=== PATIENT | female | born 2000 | race Caucasian/White ===

== ENCOUNTER 2020-02-26 11:58 | Emergency (ER) | payer OTHER, SELFPAY ==
[2020-02-26 12:10] VITALS: BP 127/72; PULSE 96; RESP 18; TEMP 37; O2SAT 100
--- NOTE | 2020-02-26 12:42 | ED.GENADULT ---
HPI - General Adult General Chief complaint: Ear Stated complaint: ear pain History of Present Illness HPI narrative: Patient is a 19-year-old female who presents complaining of left ear pain and fullness x2 weeks, increased pain over the past few days. She reports a history of frequent ear infections in the past. Denies taking any [id number] medication for pain. MD complaint: Left ear pain Related Data Allergies Allergy/AdvReac Type Severity Reaction Status Date / Time morphine Allergy Severe SWELLING Verified 02/26/20 12:21 Penicillins Allergy Severe THROAT Verified 02/26/20 12:21 LETICIA Review of Systems Review of Systems: Narrative: CONSTITUTIONAL: Denies fever, chills, or sweats. EYES: Denies visual changes, redness, or discharge. ENT: Left otalgia CARDIOVASCULAR: Denies chest pain, palpitations, or edema. RESPIRATORY: Denies cough or dyspnea. GASTROINTESTINAL: Denies abdominal pain, nausea, vomiting, or diarrhea. GENITOURINARY: Denies dysuria or hematuria. SKIN: Denies rash or itching. MUSCULOSKELETAL: Denies back pain, joint pain, or myalgia. NEUROLOGIC: Denies headache, numbness, dizziness, or weakness. PSYCHIATRIC: Denies anxiety or depression. [facility] Past Medical History Medical History (Updated 02/26/20 @ 13:08 by MARY ELLEN Rodgers) ADD (attention deficit disorder) Depression Ear infection Eczema Hearing loss Surgical History Surgical History H/O: History of placement of ear tubes x 6 Family History Family History Other Cancer Diabetes mellitus Hypertension Social History Social History Second hand tobacco smoke exposure: Yes Substance use: never Living arrangements: with family Exam Narrative: Exam Narrative: GENERAL: Well-appearing, well-nourished, and in no acute distress. HEAD: Normocephalic, atraumatic. EYES: EOMI. No redness or drainage. Conjunctiva are normal. ENT: Mucous membranes pink and moist. Left TM full and injected, large amount of cerumen. Throat normal. Uvula midline. CHEST: No respiratory distress. EXTREMITIES: Normal range of motion. SKIN: Warm, dry, no rash. NEURO: No focal deficits. Alert and oriented x3. Gait steady. PSYCH: Normal affect. No signs of depression or anxiety. Course Vital Signs Vital signs: Vital Signs Temperature 37.0 C 02/26/20 12:10 Pulse Rate 96 02/26/20 12:10 Respiratory Rate 18 02/26/20 12:10 Blood Pressure 127/72 02/26/20 12:10 Pulse Oximetry 100 02/26/20 12:10 Temperature 37.0 C 02/26/20 12:10 Pulse Rate 96 02/26/20 12:10 Respiratory Rate 18 02/26/20 12:10 Blood Pressure 127/72 02/26/20 12:10 Pulse Oximetry 100 02/26/20 12:10 Procedures Ear Wax Removal Left Ear: Ear Wax Removal Date: 02/26/20 Ear Wax Removal Time: 13:48 Cerumenolytic Used: other (peroxide) Results: Re-examined: cerumen removed completely TM Examination: TM(s) erythematous Ear Canal Exam: atraumatic Patient Tolerated Procedure: well Complications: no problems Technique: ear canal irrigated and ear canal curetted Medical Decision Making MDM Narrative Medical decision making narrative: Patient has excessive cerumen and left otitis media. Discussed with patient using antibiotic as directed. She should also follow-up with her PCP or ENT in 2 to 3 weeks for an ear recheck. She may take Tylenol for pain. Patient is 15 weeks gestation. Differential Diagnosis Differential Diagnosis: Otitis media, otitis externa, foreign body, cerumen impaction Medical Records Medical records reviewed: Yes I reviewed the patient's medical records. Vital Signs Vital Signs: Vital Signs Temperature 37.0 C 02/26/20 12:10 Pulse Rate 96 02/26/20 12:10 Respiratory Rate 18 02/26/20 12:1
== END 2020-02-26 13:15 | disposition home or self-care (01) ==
PROVIDERS: Emergency Provider Nurse Practitioner; PCP Family Medicine Adolescent Medicine
DX: O99.893 Other specified diseases and conditions complicating puerperium (principal); H66.005 Acute suppurative otitis media without spontaneous rupture of ear drum, recurrent, left ear; H61.22 Impacted cerumen, left ear; Z3A.15 15 weeks gestation of pregnancy
CPT/HCPCS: 69210; 99213; G0463

== ENCOUNTER 2020-03-09 08:34 | Emergency (ER) | payer OTHER, SELFPAY ==
[2020-03-09 08:46] VITALS: BP 135/71; PULSE 115; RESP 18; TEMP 36.7; O2SAT 100
--- NOTE | 2020-03-09 08:52 | ED.GENADULT ---
HPI - General Adult General Chief complaint: Ear Stated complaint: Ear Infection Time Seen by Provider: 03/09/20 08:52 Source: patient and RN notes reviewed Mode of arrival: ambulatory Limitations: no limitations History of Present Illness HPI narrative: 19-year-old 17 weeks gestation female presents with complaints of left otalgia and drainage for the past 12 days. Sade reports that she was here at the [facility] and treated with a Z-pack without relief. Denies swimming or getting water into ear. Denies trouble hearing. Denies URI symptoms, No high fevers or chills. Denies injury to the ear. No nasal drainage and congestion. Denies nausea, vomiting, tinnitus, and dizziness. Remains active. The patient reports she have not been diagnosed with COVID-19. The patient reports she is not waiting for the results of a COVID-19 lab test. The patient reports she do not have chills, weakness, or fatigue. The patient reports she do not have a new or worsening cough or shortness of breath. Denies chest pain. The patient reports she do not have any rhinorrhea, congestion, sore throat, loss of taste, nausea, vomiting, abdominal pain, and diarrhea. Tolerating po intake well. Denies recent traveling. Denies concerns for COVID-19 or exposures been home with limited outdoor exposure except for essential household needs, work, and return home. At this time, patient is not suspected of having COVID-19. Some parts of this dictation were generated by voice recognition software and may contain typographical and/or grammatical inaccuracies. Related Data Allergies Allergy/AdvReac Type Severity Reaction Status Date / Time morphine Allergy Severe SWELLING Verified 03/09/20 08:47 Penicillins Allergy Severe THROAT Verified 03/09/20 08:47 SWELLS Review of Systems Review of Systems: Narrative: CONSTITUTIONAL: Denies fever, chills, sweats. EYES: Denies visual changes, redness, discharge. ENT: Denies rhinorrhea, congestion, sore throat. Complains of LT otalgia and drainage. CARDIOVASCULAR: Denies chest pain, palpitations, edema. RESPIRATORY: Denies dyspnea, wheezing, cough. GASTROINTESTINAL: Denies abdominal pain, nausea, vomiting, diarrhea. SKIN: Denies rash or itching. MUSCULOSKELETAL: Denies acute back pain, joint pain, or myalgia. NEUROLOGIC: Denies numbness or focal weakness. PSYCHIATRIC: Denies anxiety or depression. All systems reviewed & are unremarkable except as noted in HPI and below PMFSH Past Medical History Medical History ADD (attention deficit disorder) Depression Ear infection Eczema Hearing loss Surgical History Surgical History H/O: History of placement of ear tubes x 6 Family History Family History (Updated 03/09/20 @ 09:14 by MARY ELLEN Sol) Father Unknown family medical history Mother Diabetes mellitus Hypertension Other Cancer Social History Social History (Updated 03/09/20 @ 09:16 by MARY ELLEN Sol) Smoking status: Never smoker Tobacco type: cigarettes Second hand tobacco smoke exposure: Yes Alcohol intake: former Substance use: never Living arrangements: with family Additional living arrangements comments: fiance and kids Occupation/Education: occupation Gender identity (if verbalized by the patient): Female Sexual Orientation (if Verbalized by the Patient): Straight or Heterosexual Comments At time of signature, agree with nurse past medical, surgical, social, and family history. There is relevant patient's past medical history pertinent to the presenting complaint, no relevant family history pertinent to the presenting complaint. Exam Narrative: Exam Narrative: GENERAL: This is a well-nourished, well-developed patient, in no apparent distress. Talks in full sentences and ambulates with steady gait without dyspnea
[2020-03-09 09:09] VITALS: BP 112/60; PULSE 96
== END 2020-03-09 09:11 | disposition home or self-care (01) ==
PROVIDERS: Emergency Provider Nurse Practitioner Family; PCP Family Medicine Adolescent Medicine
DX: H60.502 Unspecified acute noninfective otitis externa, left ear (principal)
CPT/HCPCS: 99213; G0463

== ENCOUNTER 2020-08-16 04:56 | Inpatient (IN) | payer OTHER, SELFPAY ==
[2020-08-16] VITALS (68 sets, daily range): BP systolic 80–175; BP diastolic 35–156; PULSE 63–204; RESP 15–21; TEMP 36.2–37.8; O2SAT 84–100; BMI 42.2
[2020-08-16] MEDS: LACTATED RINGERS 1,000 ML 125 ML IV CONT (05:38)
[2020-08-16 05:58] LABS: Basophils Percent Auto 0.2 % (0.2-1.2); Eosinophils Percent Auto 0.4 % (0-4.4); Immature Granulocyte Absolute 0.05 K/mm3 (0.00-0.031); Immature Granulocyte Percent A 0.5 % (0-0.5); Lymphocytes Absolute Auto 2.34 K/mm3 (0.9-3.2); Lymphocytes Percent Auto 25.5 % (18.3-44.2); Mean Corpuscular HGB Conc 31.6 g/dl (32-36); Mean Corpuscular Hemoglobin 26.7 pg (26-34); Mean Corpuscular Volume 84.4 fl (80-100); Monocytes Absolute Auto 0.7 K/mm3 (0.1-0.6); Monocytes Percent Auto 7.5 % (2.6-8.5); Neutrophils Percent Auto 65.9 % (45.5-73.1); Platelet Count Result 185 k/mm3 (150-375); Red Cell Distribution Width 14.7 % (11.5-14.5); White Blood Count 9.2 K/mm3 (4.5-10.0)
--- NOTE | 2020-08-16 06:38 | LDADM ---
This patient, Sade Corona, was admitted to Labor/Delivery/Recovery 120 on 08/16/20 at 04:56. Plans for labor, pain management and were discussed with patient. Patient/family oriented to hospital policies and general routines including ID bracelet, bed and alarms, visiting hours, pain management, procedures, bathroom and other care routines, personal items, smoking policy, room service/diet and guest tray routines, infant security routines, and visiting hours. Patient/Family are encouraged to report perceived risks to care and to ask questions if they do not understand what they are told or what they should do. See OBIX for further documentation.
--- NOTE | 2020-08-16 06:55 | WPDANESEPPF ---
Anes - Initial Pre Proc Eval Procedure: Operation Date: 08/16/20 07:30 Proposed Procedures p Repeat Section - Devi Hamm MD Date/Time: 08/16/20 06:55 Surgeon: Devi Hamm MD Pre Op Diagnosis: Patient Data Age: 19 Gender: F Height: 1.65 m Weight: 115 kg Last Vital Signs Pulse 91 08/16/20 06:01 BP 123/67 08/16/20 06:01 Allergies Allergy/AdvReac Type Severity Reaction Status Date / Time morphine Allergy Severe SWELLING Verified 03/09/20 08:47 Penicillins Allergy Severe THROAT Verified 03/09/20 08:47 SWELLS Home Medications Medication Instructions Recorded Confirmed Type ciprofloxacin HCl See Rx Instructions .ROUTE 03/09/20 Rx .COMPLEX #10 ml dexamethasone See Rx Instructions .ROUTE 03/09/20 Rx .COMPLEX 7 Days #5 ml Laboratory Tests 08/16/20 08/16/20 05:36 05:36 WBC 9.2 K/mm3 K/mm3 (4.5-10.0) RBC 4.50 M/mm3 M/mm3 (4.2-5.4) Hgb 12.0 g/dL g/dL (12.0-15.0) Hct 38.0 % % (37.0-47.0) MCV 84.4 fl fl (80-100) MCH 26.7 pg pg (26-34) MCHC 31.6 g/dl L g/dl (32-36) RDW 14.7 % H % (11.5-14.5) Plt Count 185 k/mm3 k/mm3 (150-375) MPV 12.0 fl H fl (7.4-10.4) Immature Gran % (Auto) 0.5 % % (0-0.5) Neut % (Auto) 65.9 % % (45.5-73.1) Lymph % (Auto) 25.5 % % (18.3-44.2) [place] % (Auto) 7.5 % % (2.6-8.5) Eos % (Auto) 0.4 % % (0-4.4) Baso % (Auto) 0.2 % % (0.2-1.2) Lymph # (Auto) 2.34 K/mm3 K/mm3 (0.9-3.2) [place] # (Auto) 0.7 K/mm3 H K/mm3 (0.1-0.6) Eos # (Auto) 0.0 K/mm3 K/mm3 (0-0.3) Baso # (Auto) 0.0 K/mm3 K/mm3 (0.0-0.1) Abs Immat Gran (auto) 0.05 K/mm3 H K/mm3 (0.00-0.031) Absolute Neuts (auto) 6.0 K/mm3 K/mm3 (1.3-6.7) Absolute Nucleated RBC 0.0 K/mm3 K/mm3 (0.0-0.012) Nucleated RBC % 0.0 % % (0.0-0.2) RPR Pending Patient hx anesthesia problems: none Family hx anesthesia problems: none PMFSH Past Medical History Medical History ADD (attention deficit disorder) Depression Ear infection Eczema Hearing loss Surgical History Surgical History H/O: History of placement of ear tubes x 6 Family History Family History (Updated 03/09/20 @ 09:14 by MARY ELLEN Sol) Father Unknown family medical history Mother Diabetes mellitus Hypertension Other Cancer Social History Social History (Updated 03/09/20 @ 09:16 by MARY ELLEN Sol) Smoking status: Never smoker Tobacco type: cigarettes Second hand tobacco smoke exposure: Yes Alcohol intake: former Substance use: never Additional living arrangements comments: fiance and kids Gender identity (if verbalized by the patient): Female Spiritual care concerns: No Anes - Eval Final PreProcedure Day of Procedure 08/16/20 06:55 Patient weight: morbidly obese Heart: regular rate and rhythm Lungs: clear to auscultation and normal air movement Airway: Mallampati scale class II Neurological: alert and oriented Last oral intake: >/= 8 hours ASA classification: III Emergent: no Anesthetic plan: proceed Anesthesia type and monitoring: regional spinal Informed Consent: The patient's anesthetic plan and its attendant risks and benefits were discussed with the patient/family/POA. Questions were solicited and answers provided to the satisfaction of the patient/family/POA.
[2020-08-16] MEDS: CLINDAMYCIN 900 MG/D5W 50 ML 900 MG/50 ML PIGGYBACK 50 MG IVPB (07:18)
--- NOTE | 2020-08-16 07:26 | P.HP_ITS ---
H&P: HPI History of Present Illness Date/Time: 08/16/20 07:26 Chief Complaint: R CS Narrative: Sade is a at 39.1 for repeat CS. uncomplicated except by GBS pos and obesity. Review of Systems Review of Systems: All systems reviewed & are unremarkable except as noted in HPI and below [facility] Past Medical History Medical History ADD (attention deficit disorder) Depression Ear infection Eczema Hearing loss Surgical History Surgical History H/O: History of placement of ear tubes x 6 Family History Family History (Updated 03/09/20 @ 09:14 by MARY ELLEN Sol) Father Unknown family medical history Mother Diabetes mellitus Hypertension Other Cancer Social History Social History (Updated 03/09/20 @ 09:16 by MARY ELLEN Sol) Smoking status: Never smoker Tobacco type: cigarettes Second hand tobacco smoke exposure: Yes Alcohol intake: former Substance use: never Additional living arrangements comments: fiance and kids Gender identity (if verbalized by the patient): Female Spiritual care concerns: No Meds Home Medications and Allergies Home Medications Medication Instructions Recorded Confirmed Type ciprofloxacin HCl See Rx Instructions .ROUTE 03/09/20 Rx .COMPLEX #10 ml dexamethasone See Rx Instructions .ROUTE 03/09/20 Rx .COMPLEX 7 Days #5 ml Allergies Allergy/AdvReac Type Severity Reaction Status Date / Time morphine Allergy Severe SWELLING Verified 03/09/20 08:47 Penicillins Allergy Severe THROAT Verified 03/09/20 08:47 SWELLS Vital Signs Vital Signs - 24 hr 08/16/20 05:17 08/16/20 05:52 08/16/20 06:01 Temperature Pulse Rate 104 H 89 91 Blood Pressure 124/74 124/65 123/67 08/16/20 06:19 Temperature 98.7 F Pulse Rate Blood Pressure Exam Const: General: no acute distress Resp: Effort & Inspection: normal respiratory effort Auscultation: clear to auscultation bilaterally Cardio: Rate: regular rate Rhythm: regular rhythm GI: GI Palp: Yes Soft to palpation Extrem: General: normal to inspection H&P: Results Labs Labs: Short CBC 08/16/20 Range/Units 05:36 WBC 9.2 (4.5-10.0) K/mm3 Hgb 12.0 (12.0-15.0) g/dL Hct 38.0 (37.0-47.0) % Plt Count 185 (150-375) k/mm3 Assessment and Plan Additional Plan Plan Repeat CS Discussed RBA, pt consented, all questions answered. will proceed.
--- NOTE | 2020-08-16 07:30 | WPDHPUPDATE1 ---
History and Physical Update Update Date/Time: 08/16/20 07:30 History and Physical has been reviewed, including an updated exam of the patient. There are NO changes in the patient's condition. Risks, benefits, and alternatives have been discussed and questions answered. Patient agrees to proceed with procedure.
--- NOTE | 2020-08-16 08:57 | P.OP_ITS ---
Procedure Note - Detailed Date of Procedure 08/16/20 Pre-op Diagnosis Post-op Diagnosis same Procedure Performed repeat section Surgeon Devi Hamm MD Annealing Furnace Operator see delivery record Anesthesia spinal Indications prior CS Findings female baby, 7-15 Description of Procedure The patient was taken to the operating room and placed in supine position with left lateral tilt. She received spinal anesthesia and was prepped and draped in normal fashion. Benavidez was in place. After testing for adequate regional anesthesia, a Pfannensteil incision was made through skin and subcutaneous tissue. The fascia was incised in the midline and this was extended laterally with carmona scissors. the rectus muscles were from the fascia both superiorly and inferiorly. The peritoneum was entered bluntly and this opening was extended bluntly and with metzenbaum scissors. A partial maylard incision was made, about 2cm of muscle on the left side. A bladder blade was placed. A bladder flap was made and the bladder blade replaced. The low transverse uterine incision was made with a scalpel and extended bluntly. The amniotic sac was ruptured and clear fluid was noted. The head was elevated to the incision. After two attempts with fundal pressure to deliver the head, a Kiwi vaccuum was used and easily delivered the head. The remainder of the infant was delivered easily. After delayed cord clamping, the cord was cut and the baby handed to the nurse. The uterus was exteriorized and the placenta was extracted manually. The uterus was wiped clean to ensure no remaining membranes. A small extention was noted at the left side of the incision. The uterus was closed with one running, nonlocking suture of 3-0 vicryl. Hemostasis was noted. the uterus was returned to the pelvis and the abdomen was irrigated. The fascia was closed with running suture of 0-vicryl. The subcutaneous tissue was irrigated and made hemostatic with bovie cautery. A running suture of 2-0 plain gut was used to reapproximate the adipose tissue. The skin was closed with 4-0 vicryl in running subcuticular fashion and steri strips were placed. The patient tolerated the procedure well and mother and baby were both in stable condition. Estimated Blood Loss 380 Drains No Packing No Pathology none sent Complications No immediate complications Condition stable Disposition floor
[2020-08-16] MEDS: MEPERIDINE HCL INJ (*CRX) 50 MG/ML AMPUL 25 MG IV PUSH (09:06)
--- NOTE | 2020-08-16 09:11 | P.PCNOB_ITS ---
OB - Delivery Note Procedure Delivery date: 08/16/20 Procedure: Procedures Operation Date: 08/16/20 07:30 <No data on this case meets the specified criteria> Repeat Low Transverse Section Intrapartal events: None Route of delivery: Specimen: Yes (placenta) Quantitative Blood Loss (ml): 380 Anesthesia type: Spinal Disposition: floor Complications: none Narrative: The patient was taken to the OR and received spinal anesthesia. She was placed in dorsal supine position with left lateral tilt. SCDs and boss were placed. She was prepped and draped in the normal sterile fashion. A Pfannensteil skin incision was made and carried through to the underlying layer of fascia. The fascia was incised in the midline and then extended laterally using Patton scissors. The muscles were in the midline and the peritoneum was entered bluntly. The peritoneal incision was extended inferiorly and superiorly with care to avoid the bladder. The bladder blade was then inserted, the vesicouterine peritoneum was grasped, incised with Metzenbaum scissors, and a bladder flap created. The bladder blade was reinserted. A low transverse uterine incision was made with a scalpel and extended bluntly. AROM was performed and fluid was noted to be clear. The head was delivered, followed by the remainder of the baby. The baby's oropharynx was suctioned. After 30 seconds, the cord was clamped and cut and the was handed off. Cord blood was obtained and the placenta was then removed manually. The uterus was exteriorized. A moist lap sponge was used to curette the endometrium. The uterine incision was then closed with one layer of 0-Vicryl in a running, locking fashion. Good hemostasis was noted. The posterior cul de sac was irrigated with normal saline and cleared of all clot and debris. The uterus was returned to the abdomen. Both lateral gutters were then irrigated. The rectus muscles were inspected and found to be hemostatic. The fascia was reapproximated using 0-Vicryl in running fashion. The subcutaneous tissue was irrigated with normal saline and made hemostatic with Bovie electrocautery. The subcutaneous tissue was reapproximated with a layer of running 2-0 plain gut. The skin was then closed with 4-0 Vicryl in a subcuticular fashion. Steri strips and a bandage were applied. The uterus was evacuated. The patient tolerated the procedure very well. All counts were correct. She was taken to the recovery room in good condition. [place] Baby Date of : 08/16/20 Weeks of gestation at delivery: 39 Infant gender: Female Weight (pounds): 7 Weight (ounces): 15 presentation: vertex Placenta delivery description: Manual Removal cord vessel description: 3 Vessels and Delayed Cord Clamping score one minute: 8 score five minutes: 9
[2020-08-16] MEDS: OXYTOCIN 30 UNITS/NS 500 ML 30 UNITS/500 ML BAG 125 UNITS IV CONT (09:33)
--- NOTE | 2020-08-16 10:30 | PC.NURSE ---
Pt arrived on unit via stretcher and taken to room 285 accompanied by significant other and . PT transferred to bed via maxi air without difficulty. PT alert and awake and oriented to room 285 and surrounding area. PT introductions made and plan of care discussed per post op c section, pain management, breast feeding, daily care activities. PT and significant other recipients of such instructions. No barriers to learning identified. PT received education and instructions per one to one discussion, demonstration, mom baby guide during this shift. PT verbalized understanding of such care and welcome packet reviewed and discussed.
[2020-08-16] MEDS: KETOROLAC 30 MG/ML VIAL (*BKC) IV PUSH (10:56)
[2020-08-16 11:07] LABS: Rapid Plasma Reagin Non-Reactive (NonReactive)
[2020-08-16] MEDS: HYDROcodone/acetaminophen (*CRX) 10-325 MG TABLET 1 TAB PO ×3 (14:01→22:13)
[2020-08-16] MEDS: SIMETHICONE 80 MG TAB.CHEW PO ×3 (14:03→22:14)
[2020-08-16] MEDS: LANOLIN (LANSINOH) 7.5 GM CREAM 1 APPLIC TOPICAL (14:03)
[2020-08-16] MEDS: DEXTROSE 5%/0.45% SOD CHL 1,000 ML 125 ML IV CONT (14:11)
[2020-08-16] MEDS: IBUPROFEN 600 MG TABLET PO (18:47)
[2020-08-16] MEDS: DOCUSATE SODIUM 100 MG CAPSULE PO (18:48)
[2020-08-17] MEDS: IBUPROFEN 600 MG TABLET PO ×4 (01:50→23:50)
[2020-08-17] MEDS: SIMETHICONE 80 MG TAB.CHEW PO ×3 (01:50→23:50)
[2020-08-17] MEDS: HYDROcodone/acetaminophen (*CRX) 10-325 MG TABLET 1 TAB PO ×5 (01:50→23:50)
[2020-08-17 03:45] VITALS: BP 105/55; PULSE 97; RESP 20; TEMP 36.8
[2020-08-17 05:40] LABS: Basophils Percent Auto 0.3 % (0.2-1.2); Eosinophils Absolute Auto 0.1 K/mm3 (0-0.3); Eosinophils Percent Auto 0.5 % (0-4.4); Hematocrit 27.8 % (37.0-47.0); Hemoglobin 8.7 g/dL (12.0-15.0); Immature Granulocyte Absolute 0.07 K/mm3 (0.00-0.031); Immature Granulocyte Percent A 0.7 % (0-0.5); Lymphocytes Absolute Auto 2.93 K/mm3 (0.9-3.2); Lymphocytes Percent Auto 28.4 % (18.3-44.2); Mean Corpuscular HGB Conc 31.3 g/dl (32-36); Mean Corpuscular Hemoglobin 26.9 pg (26-34); Mean Corpuscular Volume 85.8 fl (80-100); Mean Platelet Volume 12.8 fl (7.4-10.4); Monocytes Absolute Auto 0.9 K/mm3 (0.1-0.6); Monocytes Percent Auto 8.5 % (2.6-8.5); Neutrophils Absolute Auto 6.4 K/mm3 (1.3-6.7); Neutrophils Percent Auto 61.6 % (45.5-73.1); Platelet Count Result 162 k/mm3 (150-375); Red Blood Count 3.24 M/mm3 (4.2-5.4); Red Cell Distribution Width 14.8 % (11.5-14.5); White Blood Count 10.3 K/mm3 (4.5-10.0)
[2020-08-17] MEDS: POLYSACCHARIDE IRON COMPLEX 150 MG CAPSULE PO ×2 (08:27→18:07)
[2020-08-17] MEDS: DOCUSATE SODIUM 100 MG CAPSULE PO ×2 (08:27→18:06)
[2020-08-17] MEDS: MULTIVIT/MIN/PREN/FOL AC/IRON TABLET 1 TAB PO (08:27)
[2020-08-17 08:29] VITALS: BP 129/79; PULSE 98; RESP 20; TEMP 36.5; O2SAT 100
--- NOTE | 2020-08-17 09:16 | WPDANLDPN2 ---
Anes-Prog Note L&D Date/Time: 08/17/20 09:16 Comfortable throughout: section Neuraxial method: spinal Epidural/Spinal procedure site: clean & non-tender Neuro status: Neuro function grossly intact. Cardiovascular status: normal Respiratory status: normal Airway patency: baseline Mental status: baseline Post-Op hydration status: normal Vital Signs: Last Vital Signs Temp 36.5 C 08/17/20 08:29 Pulse 98 08/17/20 08:29 Resp 20 08/17/20 08:29 BP 129/79 08/17/20 08:29 Pulse Ox 100 08/17/20 08:29 Pain score (VAS): 2 I/O: Intake & Output 08/16/20 08/17/20 08/17/20 23:59 07:59 15:59 Intake Total 1800 Output Total 1050 Balance 750 Post-procedural complaints: none Patient feedback: Patient satisfied with anesthetic care.
--- NOTE | 2020-08-17 09:16 | WPDANLDNPN2 ---
Anes-Prog Note L&D-Neuraxial Date/Time: 08/17/20 09:16 Neuraxial medications: intrathecal PF morphine Opiod-related complaints: pruritis mild, no treatment Patient feedback: Patient satisfied with post-operative pain management.
--- NOTE | 2020-08-17 09:31 | PM.OBPNVD ---
OB - PN: Subj Subjective Date/time seen: 08/17/20 09:31 Patient comments: no complaints baby status: doing well OB - PN: Obj Data Labs CBC & Chem 7: 08/17/20 04:04 Labs: Laboratory Results - last 24 hr 08/16/20 08/17/20 05:36 04:04 WBC 10.3 H RBC 3.24 L Hgb 8.7 L D Hct 27.8 L MCV 85.8 MCH 26.9 MCHC 31.3 L RDW 14.8 H Plt Count 162 MPV 12.8 H Immature Gran % (Auto) 0.7 H Neut % (Auto) 61.6 Lymph % (Auto) 28.4 [place] % (Auto) 8.5 Eos % (Auto) 0.5 Baso % (Auto) 0.3 Lymph # (Auto) 2.93 [place] # (Auto) 0.9 H Eos # (Auto) 0.1 Baso # (Auto) 0.0 Abs Immat Gran (auto) 0.07 H Absolute Neuts (auto) 6.4 Absolute Nucleated RBC 0.0 Nucleated RBC % 0.0 RPR Non-reactive OB - PN A/P Plan day: 1 Plan: routine care Time Spent With Patient Time: Total time spent is greater than 50% in coordination of care (as documented) at patient's floor/unit and/or counseling patient: Review of Systems Review of Systems: All systems reviewed & are unremarkable except as noted in HPI and below Exam Narrative: Exam Narrative: incision CDI Const: General: cooperative Nutritional Appearance: average body habitus
[2020-08-17 13:45] VITALS: BP 124/69; PULSE 88; RESP 16; TEMP 37; O2SAT 99
[2020-08-17 19:17] VITALS: BP 108/57; PULSE 97; RESP 16; TEMP 36.8
[2020-08-18] MEDS: SIMETHICONE 80 MG TAB.CHEW PO (05:08)
[2020-08-18] MEDS: HYDROcodone/acetaminophen (*CRX) 5-325 MG TABLET 1 TAB PO ×4 (05:08→17:56)
[2020-08-18] MEDS: IBUPROFEN 600 MG TABLET PO ×3 (05:08→22:59)
[2020-08-18 07:05] VITALS: BP 106/68; PULSE 86; RESP 18; TEMP 36.2; O2SAT 99
[2020-08-18] MEDS: POLYSACCHARIDE IRON COMPLEX 150 MG CAPSULE PO ×2 (09:59→17:55)
[2020-08-18] MEDS: MULTIVIT/MIN/PREN/FOL AC/IRON TABLET 1 TAB PO (09:59)
[2020-08-18] MEDS: DOCUSATE SODIUM 100 MG CAPSULE PO ×2 (09:59→17:56)
--- NOTE | 2020-08-18 10:23 | PM.OBPNVD ---
OB - PN: Subj Subjective Date/time seen: 08/18/20 10:23 Patient comments: no complaints baby status: doing well OB - PN: Obj Data Labs CBC & Chem 7: 08/17/20 04:04 OB - PN A/P Plan day: 2 Plan: routine care and discharge home Time Spent With Patient Time: Total time spent is greater than 50% in coordination of care (as documented) at patient's floor/unit and/or counseling patient: Review of Systems Review of Systems: All systems reviewed & are unremarkable except as noted in HPI and below Exam Narrative: Exam Narrative: Incision CDI Const: General: cooperative and healthy appearing Psych: Attitude: cooperative Thought process: Normal thought process present Thought content: Yes Normal thought content present Insight: Good insight present (Psych) Judgement: Good judgement present (Psych)
--- NOTE | 2020-08-18 10:27 | PM.OBDSVD ---
DS: Admitting Diagnosis Admitting Diagnosis Admitting Diagnosis: rpt OB - DS: Summary OB Procedures : None OB Procedures Intrapartum: OB Procedures: : None Peripartum Data Procedures: Procedures Operation Date: 08/16/20 07:30 Actual Procedure Side Surgeon p Repeat Section Devi Hamm MD Time Spent with Patient Time attestation: Total time spent providing and/or coordinating discharge services: Discharge Plan Discharge Attending physician on discharge: Aldo Machado Discharging Clinician: Karyna Acosta Patient Disposition: Home, Self-Care Activity: pelvic rest Diet: regular Patient Instructions: Antibiotic Form Stand Alone Forms: General Discharge Information Follow-up/Referrals: Devi Hamm MD [Physician] - 1 Week Discharge Medications: New hydrocodone-acetaminophen 5-325 mg Tablet 1 tablet PO Q3H PRN (Reason: Moderate Pain (4-6)) Qty: 20 RF: 0 No Action No Home Medications RF: 0 Date of admission: 08/16/20 04:56 Primary Care Provider: Manfred Perdomo Admitting Provider: Devi Hamm Attending physician on admission: Devi Hamm Condition: Stable
[2020-08-18 19:20] VITALS: BP 144/86; PULSE 90; RESP 20; TEMP 37.1; O2SAT 99
[2020-08-19] MEDS: HYDROcodone/acetaminophen (*CRX) 5-325 MG TABLET 1 TAB PO ×2 (03:09→08:36)
--- NOTE | 2020-08-19 07:45 | P.PNOB_ITS ---
OB - PN: Subj Subjective Date/time seen: 08/19/20 07:45 Patient comments: no complaints, pain well controlled and tolerating diet [place] baby status: doing well Narrative: No concerns. E/A/V. Wants DC home today. OB - PN: Obj Data Labs CBC & Chem 7: 08/17/20 04:04 OB - PN A/P Plan day: 2 Plan: routine care and discharge home Comments: anemia- continue iron FU 4 days with me in office DC instructions given. Time Spent With Patient Time: Total time spent is greater than 50% in coordination of care (as documented) at patient's floor/unit and/or counseling patient: Exam Narrative: Exam Narrative: NAD abdomen soft, appropriately tender, incision CDI Extremities nontender with 1+ edema
--- NOTE | 2020-08-19 07:47 | PM.OBDSVD ---
DS: Admitting Diagnosis Admitting Diagnosis Admitting Diagnosis: prior CS, term IUP DS: Discharge Diagnosis Discharge Diagnosis (1) Delivery of by section: Code(s): O82 - Encounter for delivery without indication Status: Acute OB - DS: Summary OB Procedures : Ultrasound OB Procedures Intrapartum: OB Procedures: : None Peripartum Data Infant Delivery Method: Section Procedures: Procedures Operation Date: 08/16/20 07:30 Actual Procedure Side Surgeon p Repeat Section Devi Hamm MD complications: none Status at Discharge Functional status at discharge: independent ambulation Time Spent with Patient Time attestation: Total time spent providing and/or coordinating discharge services: Time spent: Less than 30 minutes Discharge Plan Discharge Attending physician on discharge: Devi Hamm Discharging Clinician: Devi Hamm Anticipated Discharge Date/Time: 08/19/20 10:00 Patient Disposition: Home, Self-Care Activity: may shower and pelvic rest Diet: regular Patient Instructions: Antibiotic Form Stand Alone Forms: General Discharge Information Follow-up/Referrals: Devi Hamm MD [Physician] - 1 Week Discharge Medications: New hydrocodone-acetaminophen 5-325 mg Tablet 1 tablet PO Q3H PRN (Reason: Moderate Pain (4-6)) Qty: 20 RF: 0 polysaccharide iron complex 150 mg iron Capsule 150 mg PO BIDWM Qty: 60 RF: 0 No Action No Home Medications RF: 0 Date of admission: 08/16/20 04:56 Primary Care Provider: Manfred Perdomo Admitting Provider: Devi Hamm Attending physician on admission: Devi Hamm Condition: Stable
--- NOTE | 2020-08-19 08:00 | PC.NURSE ---
Patient viewed the discharge video Mother & Baby Care, The First Two Weeks . Patient was given the opportunity and encouraged to ask questions. Patient verbalized understanding of information shared and has been given the mother/baby guide for home reference.
[2020-08-19 08:15] VITALS: BP 135/79; PULSE 117; RESP 18; TEMP 36.6; O2SAT 98
[2020-08-19] MEDS: IBUPROFEN 600 MG TABLET PO (08:36)
[2020-08-19] MEDS: POLYSACCHARIDE IRON COMPLEX 150 MG CAPSULE PO (08:36)
[2020-08-19] MEDS: DOCUSATE SODIUM 100 MG CAPSULE PO (08:36)
[2020-08-19] MEDS: MULTIVIT/MIN/PREN/FOL AC/IRON TABLET 1 TAB PO (08:36)
--- NOTE | 2020-08-19 09:30 | PC.NURSE ---
Mother called out for assist with feeding. Consult with pt., mother reports she had difficulties and discomfort with latching first days and supplemented. Mother has some bruising to both areolas from incorrect latch and states is latching more consistently with minimal discomfort and not supplementing. Reviewed feeding cues, frequencies, duration of feedings, feeding elimination flow sheet, and signs of adequate intake. Demonstrated stimulation techniques to wake infant for feeding. Assisted with to breast. Reviewed positioning/alignment in cross cradle, holding breast in ?U? hold and guided asymmetrical latch on. Mother struggled with cross cradle, reviewed football. Several attempts before able to latch correctly. Infant nursed eagerly, with steady draws and frequent swallowing noted. Reviewed signs of a correct latch, effective nursing and suck swallow ratio. would slip to shallow latch, mother reports tenderness. Demonstrated how to adjust latch more deeply while feeding. Mother reports she can feel change in latch and has no tenderness. Nipple care reviewed of lanolin after feedings, warm compresses and gel pads as needed. Mother believes would slip down and latch to areola causing bruising. Reviewed latching several times and adjusting latch, advising if she continues to have pain to break latch and start a new latch. Suggested mother stimulate while feeding to increase stimulate, increase intake and to assist with maintaining deep latch. Mother is feeding as required and waking infant to feed if needed. has had at least 8 effective feedings in the past 24 hours, and is currently meeting outcomes for weight, output, jaundice and feeding frequencies. Mother states she feels confident to continue effective at home. Mother is comfortable with supplementing as she feels infant requires. Reviewed transition to breast milk, signs of adequate intake, and engorgement/relief. Instructed to call ICP if intake/output less than required. Reviewed regular medications mother is taking. Information provided per Kimberly. Reviewed community resources on the [facility] website and in the Mom/Baby guide. Information on outpatient services provided. Mother has no further questions at this time.
[2020-08-21 08:24] VITALS: BP 133/77; PULSE 92; RESP 20; TEMP 37; O2SAT 100
== END 2020-08-19 10:07 | disposition home or self-care (01) | DRG 540 ==
LOC: ANHLDR 05:03 → ANHOB2 11:22
PROVIDERS: Admitting Provider Obstetrics & Gynecology; PCP Family Medicine Adolescent Medicine; Visit Provider Obstetrics & Gynecology
PROC: 10D00Z1 Extraction of Products of Conception, Low, Open Approach (ICD-10-PCS; CPT 59514; principal; 2020-08-16 07:30)
DX: O34.211 Maternal care for low transverse scar from previous cesarean delivery (principal); Z37.0 Single live birth; Z3A.39 39 weeks gestation of pregnancy; O99.824 Streptococcus B carrier state complicating childbirth; O99.214 Obesity complicating childbirth; E66.01 Morbid (severe) obesity due to excess calories; F98.8 Other specified behavioral and emotional disorders with onset usually occurring in childhood and adolescence; O99.344 Other mental disorders complicating childbirth; F32.9 Major depressive disorder, single episode, unspecified; O99.72 Diseases of the skin and subcutaneous tissue complicating childbirth; L30.9 Dermatitis, unspecified; O99.73 Diseases of the skin and subcutaneous tissue complicating the puerperium; L29.9 Pruritus, unspecified
CPT/HCPCS: 36415; 85025; 86592; 86850; 86900; 86901; A9270; J0131; J1885; J2175; J2370; J2590; J3010; J7120

== ENCOUNTER 2020-11-15 18:13 | Emergency (ER) | payer OTHER, SELFPAY ==
[2020-11-15 18:19] VITALS: BP 135/68; PULSE 94; RESP 14; TEMP 36.5; O2SAT 100
--- NOTE | 2020-11-15 18:21 | ED.EAR ---
HPI - Ear Problem General Chief complaint: Ear Stated complaint: Possible right Ear infection, pain when Pt swallow Time Seen by Provider: 11/15/20 18:21 Source: patient and RN notes reviewed History of Present Illness HPI Narrative: Patient is a 19-year-old female who presents the urgent care with complaints of right ear pain. Patient states that she has several ear infections yearly and has a history of perforation and fluid in the ear. Patient states that she has been taking ibuprofen for the pain. States that pain started approximately 1 week ago and is increased and yesterday. Denies of any other upper respiratory complaints. Denies of fever, chills, nausea, vomiting. No other acute complaints. No acute distress noted. Patient aware of the plan of care. Some parts of this dictation were generated by voice recognition software and may contain typographical and/or grammatical inaccuracies. Related Data Allergies Allergy/AdvReac Type Severity Reaction Status Date / Time morphine Allergy Severe SWELLING Verified 11/15/20 18:25 Penicillins Allergy Severe THROAT Verified 11/15/20 18:25 LETICIA Review of Systems Review of Systems: CONSTITUTIONAL: Denies fever, chills, or sweats. EYES: Denies visual changes, redness, or discharge. ENT: Denies rhinorrhea, congestion, sore throat. Reports of right otalgia CARDIOVASCULAR: Denies chest pain, palpitations, or edema. RESPIRATORY: Denies cough or dyspnea. GASTROINTESTINAL: Denies abdominal pain, nausea, vomiting, or diarrhea. GENITOURINARY: Denies dysuria or hematuria. SKIN: Denies rash or itching. MUSCULOSKELETAL: Denies back pain, joint pain, or myalgia. NEUROLOGIC: Denies headache, numbness, or weakness. All other systems reviewed are negative, except as documented in HPI. [facility] Past Medical History Medical History ADD (attention deficit disorder) Depression Ear infection Eczema Hearing loss Surgical History Surgical History H/O: History of placement of ear tubes x 6 Family History Family History (Updated 03/09/20 @ 09:14 by MARY ELLEN Slo) Father Unknown family medical history Mother Diabetes mellitus Hypertension Other Cancer Social History Social History (Updated 03/09/20 @ 09:16 by MARY ELLEN Sol) Smoking status: Never smoker Tobacco type: cigarettes Second hand tobacco smoke exposure: Yes Alcohol intake: former Substance use: never Additional living arrangements comments: fiance and kids Gender identity (if verbalized by the patient): Female Sexual Orientation (if Verbalized by the Patient): Straight or Heterosexual Spiritual care concerns: No Comments At the time of my signature, I reviewed and agree with the nursing past medical, surgical, social, and family history. There is no relevant family history pertinent to the patient complaint. Exam Narrative: GENERAL: This is a well-nourished, well-developed patient, in no apparent distress. HEAD: normocephalic, atraumatic. EYES: PERRL. Sclera clear/white. Vision is grossly intact. EARS: External ears normal, auditory canals clear and without drainage, moderate scarring and effusion behind right TM without edema or erythema. Left TM normal without perforation. Hearing grossly intact. NOSE: External nose normal with no obvious nasal discharge, nares without redness, no rhinorrhea. THROAT: Mucous membranes moist, posterior pharynx clear. NECK: Neck supple CARDIOVASCULAR: Regular rate and rhythm without murmurs, gallops, or rubs. RESPIRATORY: Clear to auscultation. Breath sounds equal bilaterally. No wheezes, rales, or rhonchi. SKIN: warm, intact with no suspicious lesions or rash, good texture and turgor. NEURO: awake, alert, and oriented to person, place and time. There were no obvious focal neurologic abnormalities. EXTREMITIES: No
== END 2020-11-15 18:51 | disposition home or self-care (01) ==
PROVIDERS: Emergency Provider Nurse Practitioner Family; PCP Family Medicine Adolescent Medicine
DX: H66.91 Otitis media, unspecified, right ear (principal); F98.8 Other specified behavioral and emotional disorders with onset usually occurring in childhood and adolescence
CPT/HCPCS: 99213; G0463

== ENCOUNTER 2024-05-01 18:00 | Emergency (ER) | payer OTHER, SELFPAY ==
--- NOTE | 2024-05-01 18:06 | ED_ITS ---
HPI - Ear Problem General Chief complaint: Ear Stated complaint: POSS EAR INFECTION Time Seen by Provider: 05/01/24 18:38 Source: patient and RN notes reviewed Mode of arrival: ambulatory Limitations: no limitations History of Present Illness HPI Narrative: 23-year-old female presents with concern for right ear pain. Reports the last week she has had cold symptoms which have resolved but she has had ear pain for the past 2 days. Reports history your infections in the past. She has not been taking any medicine. She has not had a fever MD Complaint: ear pain Related Data Home Medications ?Medication ?Instructions ?Recorded ?Confirmed ?Last Taken ?Type tirzepatide (weight loss) 5 mg/0.5 5 mg subcut WEEKLY 05/01/24 05/01/24 Unknown History mL subcutaneous pen injector (Zepbound) Allergies Allergy/AdvReac Type Severity Reaction Status Date / Time morphine Allergy Severe SWELLING Verified 05/01/24 18:10 Penicillins Allergy Severe THROAT Verified 05/01/24 18:10 SWELLS Review of Systems Review of Systems: CONSTITUTIONAL: Denies malaise, chills, sweats, or fever. EYES: Denies visual changes, redness, or discharge. ENT: Denies rhinorrhea, congestion, sinus pain, and sore throat. Reports right ear pain CARDIOVASCULAR: Denies chest pain, palpitations, or edema. RESPIRATORY: Denies cough. Denies dyspnea. GASTROINTESTINAL: Denies abdominal pain, nausea, vomiting, diarrhea SKIN: Denies rash or itching. MUSCULOSKELETAL: Denies myalgia. NEUROLOGIC: Denies headache. All systems reviewed & are unremarkable except as noted in HPI and below PMFSH Past Medical History Medical History ADD (attention deficit disorder) Depression Ear infection Eczema Hearing loss Surgical History Surgical History H/O: History of placement of ear tubes x 6 Family History Family History (Updated 03/09/20 @ 09:14 by MARY ELLEN Sol) Father Unknown family medical history Mother Diabetes mellitus Hypertension Other Cancer Social History Social History (Updated 03/09/20 @ 09:16 by MARY ELLEN Sol) Smoking status: Never smoker Tobacco type: cigarettes Second hand tobacco smoke exposure: Yes Alcohol intake: former Substance use: never Living arrangements: with family Additional living arrangements comments: fiance and kids Occupation/Education: occupation Gender identity (if verbalized by the patient): Female Sexual Orientation (if Verbalized by the Patient): Straight or Heterosexual Spiritual care concerns: No Comments At time of signature, agree with nursing past medical, surgical, social and family history. There is no relevant family history pertinent to the presenting complaint Exam Narrative: GENERAL: Well-appearing, well-nourished, and in no acute distress. HEAD: Normocephalic EYES: PERRLA, conjunctivae clear ENT: Nares clear. Mucous membranes moist. TM pearly vance with dull light reflex on the left, erythematous and bulging on the right; no tragal tenderness. Oropharynx not erythematous without lesions. Tonsils not enlarged and without exudate, no drooling, no hoarseness, no trismus, uvula midline. NECK: Supple. No lymphadenopathy CHEST: Clear to auscultation, breath sounds equal. No wheezing, rhonchi, rales, or stridor. No respiratory distress, speaks in full sentences. HEART: Regular rate and rhythm. No murmur heard. SKIN: Warm, dry, no rash. NEURO: Alert and oriented x3. PSYCH: Normal mood and affect Course Course Emergency Course: Patient is aware of diagnosis, understands and agrees to treatment plan. Ant icipatory guidance given. Patient agrees to follow-up as directed and is aware of reasons to seek care at the emergency department. Portions of this record may have been created with voice recognition software Level of Care: Express Care Visit Vital Signs Vital signs: Reviewed. Medical Decision Making [facility] Narrative Medical decision making narrative: I evaluated this in the express care. History is obtained from patient who is an independent historian and physical exam was performed.? Available medical records were reviewed. ? Exam findings and relevant testing show no acute concerns or changes; patient is non-toxic appearing and is in no distress. Differential diagnosis considered: Mendes virus, strep pharyngitis, allergic rhinitis, upper respiratory tract infection, sinusitis, rhinosinusitis, nasopharyngitis. viral pharyngitis, otitis media, otitis externa, otitis effusion, cerumen impaction, foreign body. Exam findings show no acute concerns or changes; patient is non-toxic appearing and is in no distress. Patient is appropriate for outpatient treatment and follow-up. ? Differential diagnosis and treatment plan were discussed with the patient. Patient agrees with discussion and after shared medical decision making agrees with plan of care. All questions were answered to the patient's satisfaction. Patient is appropriate for outpatient treatment and follow-up. Critical Care Time Critical Care Time Critical Care Time: No Discharge Plan Discharge Clinical Impression: Otitis media Patient Disposition: Home, Self-Care Condition: Stable Instructions: Antibiotic Form, Ear Infection (ED) Additional Instructions: Take antibiotics as directed. Recommend antihistamine such as Benadryl at night time and Zyrtec or Jacque during the day until symptoms improve Flonase nasal spray, 2 sprays in each nostril once daily until symptoms improve Also, recommend symptomatic treatment includes: rest, fluids, and increase humidity of the air at home. Recommend Acetaminophen as directed on the bottle to reduce fever, pain Please schedule a follow-up visit with your personal physician for further evaluation and treatment within 3-5days. If your symptoms persist, change or worsen significantly before you can contact your personal physician then please, without delay, go to the emergency department for further evaluation. Patient Language: [place] Prescriptions: New pseudoephedrine HCl [12 Hour Decongestant] 120 mg tablet extended release 120 mg PO Q12H PRN (Reason: nasal congestion) Qty: 20 0RF levofloxacin 750 mg tablet 750 mg PO DAILY 7 Days Qty: 7 0RF No Action methylprednisolone [Medrol (Luke)] 4 mg tablets,dose pack See Rx Instructions .ROUTE .COMPLEX Qty: 21 0RF Rx Instructions: orally per package directions Zepbound 5 mg/0.5 mL pen injector 5 mg subcut WEEKLY Follow-up/Referrals: Valerio,Jamila Rojo [Primary Care Provider] - Stand Alone Forms: Work/School Release IP Time of Disposition: 18:46
[2024-05-01 18:08] VITALS: BP 135/79; PULSE 92; RESP 20; TEMP 36.8; O2SAT 99
--- OUTSIDE RECORDS SUMMARY | 2024-05-01 19:03 | XMS_ITS | Continuity of Care Document ---
Author Organization [facility] Address [address] [place] [address] Phone Care Team Providers Care Residential Door Unit Installer Name Role Phone Unavailable Unavailable Unavailable Advance Directives Directive Yes / No Effective Date File Name No Information Encounters Encounter Description Practice Location Reason(s) For Visit Diagnoses Date Provider Providers Copied on Encounter [facility], [address] [facility] [address] [facility], [place], [place], [id number], tel:[phone] [facility] No Information No Information Referring Provider: ODILIA Pollack, [address], [place], [address]. tel:[phone] Family History Family Member Type Diagnosis Age At Onset No Information Payers Payer name Insurance type Covered republican ID Authorjack portillo(s) [facility] OF [facility] [id number] Social History Type Description Quantity Date Captured Comments Sex Female Smoking Status No Information Chief Complaint And Reason For Visit No Information History Of Present Illness Encounter Date Complaint History Of Prese nt Illness No Information Instructions Date Instruction Additional Infor mation No Information Assessments Type Assessment Date No Information
--- OUTSIDE RECORDS SUMMARY | 2024-05-01 19:03 | XMS_ITS | Clinical Summary ---
Author Organization [facility] [place] [facility] Address [address] [place] [address] Care Team Providers Care Performance Consultant Name Role Phone Jamila Luo NP Primary Care Provider [phone] Allergies Active Allergy Reactions Criticality Noted Date Comments Morphine Unknown 11/09/2023 Penicillin Anaphylaxis High 11/09/2023 Medications SUMAtriptan (IMITREX) 50 mg tabletIndicatio ns:Migraine Take 1 tablet (50 mg total) by mouth once as needed for migraine May repeat after 2 hours. 27 tablet 4 11/09/2023 11/09/19 25 Active ergocalciferol (VITAMIN D) 50,000 unit capsuleIndicati ons:Vitamin D deficiency Take 1 capsule (50,000 Units total) by mouth once a week 12 capsule 4 11/09/2023 11/09/19 25 Active Active Problems Problem Noted Date Diagnosed Date Migraine without aura and wi thout status migrainosus, not intractable 11/09/2023 Assessment & Plan (11/09/2023 10:33 AM CDT): Chronic, not well controlled Gets 1-2 per month; generally around menstrual cycle Excedrin no longer providing much relief Imitrex 50 mg as needed Immunizations Immunization Administration Dates Next Due DTaP 10/23/2004, 3,10/11/2000,06/22,04/21/1999,02/10/1999 HPV, Quadrivalent 05/15/2014,02/06/2014,10/18/19 14 Hep B, Adolescent or Pediatric 06/23/1999,1999,02/10/1999 HiB 10/11/2000, 0,04/21/1999,02/10 IPV 10/23/2004, 3,10/11/2000,04/21,02/10/1999 Influenza, Quadrivalent, Spl it, Preservative Free, Intramuscular 11/10/2016,03/11/2016 Influenza, Unspecified 11/09/2023(Deferr ed: Patient Refused),11/09/2022(Deferred: Patient Refused) MMR 10/23/2004,02/06/2003,10/11/2000 Meningococcal MCV4P (Menactra) 01/04/2015,2013 Tdap 06/19/2020, 7,10/17/2013,11/21 Varicella 10/17/2013,11/21/2012,10/31/2002 Surgical History Surgery Date Site/Laterality Comments SECTION EAR SURGERY Bilateral Medical History Medical History Date Comments Headache Family History Medical History Relation Name Comments Diabetes Mother Heart disease Mother Hypertension Mother Relation Name Status Comments Mother Social History Tobacco Use Types Packs/Day Years Used Date Smoking Tobacco: Never Smokeless Tobacco: Never Tobacco Cessation:Counseling Given: Not Answered AUDIT-C Answer Date Recorded Q1: How often do you have a drink containing alcohol? Never 11/09/2023 Q2: How many drinks containi ng alcohol do you have on a typical day when you are drinking? Patient does not drink Q3: How often do you have si x or more drinks on one occasion? Never 11/09/2023 PHQ-2 Answer Date Recorded PHQ-2 Total Score (If total score is 3 or more points, staff should administer the PHQ-9) 0 11/09/2023 Personal Safety Answer Date Recorded Getting School Help Needed Not on file 07/27 Comments Unknown Sex and Gender Information Value Date Recorded Sex Assigned at Not on file Legal Sex Female 6:28 PM CDT Gender Identity Not on file Sexual Orientation Not on file Obstetrics History Last Filed Vital Signs Vital Sign Reading Time Taken Comments Blood Pressure 104/68 11/09/2023 9:44 AM CDT Pulse 85 11/09/2023 9:44 AM CDT Temperature 36.9 C (98.4 F) 11/09/2023 9:44 AM CDT Respiratory Rate 16 11/09/2023 9:44 AM CDT Oxygen Saturation 98% 11/09/2023 9:44 AM CDT Inhaled Oxygen Concentration - - Weight 114.6 kg (252 lb 9.6 oz) 11/09/2023 9:44 AM CDT Height 162.6 cm (5' 4 ) 11/09/2023 9:44 AM CDT Body Mass Index 43.36 11/09/2023 9:44 AM CDT Plan of Treatment Health Maintenance Due Date Last Done Comments Cervical Cancer Screening 1998 Regular Well Visit/Exam 18-64 2016 Influenza Vaccine (#1) 2023 11/10/2016, 2016 Covid-19 Vaccine ( season) 2024 07/24/2020, 07/03/2020 Postponed from 11/07/2023 (Patient declined, but will receive in the future) Depression Screening 11/08/2024 11/09/2023 DTaP/Tdap/Td Vaccine (10 - Td or Tdap) 06/19/2030 06/19/2020, 11/10/2016, 10/17/2013, Additional history exists Hepatitis B Screening Completed 06/23/1999 , 04/21/1999, 02/10/1999 Varicella Vaccines Completed 10/17/2013, 0 11/21/2012, 10/31/2002 HPV Vaccines Completed 05/15/2014, 1204/2013, 10/17/2013 Hepatitis C Screening Completed 11/09/2023 Pneumococcal vaccine <65 Aged Out No longer eligible based on patient's age to complete this topic Procedures Procedure Name Priority Date/Time Associated Diagnosis Comments HEPATITIS C ANTIBODY Routine 11/09/2023 10:36 AM CDT Encounter for hepatitis C screening test for low risk patient from Last 3 Months or Most Recently Relevant to Health Maintenance Results * Hepatitis C antibody Blood (11/09/2023 10:36 AM CDT) Hep C Ab Nonreactive Nonreactive Comment: Interpretive Data Nonreactive: Antibodies to HCV not detected. Does NOT exclude the possibility of recent exposure to HCV. Equivocal: Equivocal for HCV antibodies. Supplemental molecular testing will be automatically performed to determine infection status in accordance with current CDC screening recommendations. Reactive: Positive for HCV antibodies. This may represent current or past HCV infection. Supplemental molecular testing will be automatically performed to determine current infection status in accordance with current CDC screening recommendations. Interpretive data was last revised on 2019. Testing performed by: [facility], [address] [place] [address]., [id number] Blood 11/09/2023 10:3 6 AM CDT 11/09/2023 12:49 PM CDT us Jamila Luo NP LAB MICROBIOLOGY - GENERAL ORDER BILLY Final Result [facility] ([facility]) [facility] [place] [address] from Last 3 Months or Most Recently Relevant to Health Maintenance [place] [address] [employer] Care Teams Performance Consultant Relationship Specialty Start Date End [place] [address] PCP - General Family Medicine 11/09/23
--- OUTSIDE RECORDS SUMMARY | 2024-05-01 19:03 | XMS_ITS | Data Portability ---
Author Organization [facility] Address [address] [place] [address] Care Team Providers Care Signal Tester Name Role Phone JOSHUA ROCHA Primary Care Provider Assessment Encounter Date Assessment Date Assessment LastModified by Organization Details LastModified Time 08/23/2020 08/23/2020 Normal incision check at 1 week pp continue modified activities as tolerated continue vitamins Discussed contraceptive options, patient planning condoms Precautions given FU for 4 week exam [email or web address] Not available 08/23/2020 15:17:26 09/20/2020 09/20/2020 Normal exam May resume normal activities contraceptive plan--condoms until vasectomy FU for WWE 2-3 mos [email or web address] Not available 09/20/2020 13:09:49 Plan of Treatment Reminders Order Date Submit Date Provider Last Modified By Organization Details Last Modified Time Details Appointments None record ed. Lab None record ed. Referral None record ed. Procedures None record ed. Surgeries None record ed. Imaging None record ed. Medication Orders None record ed. Patient TargetsNo targets recorded. Patient InstructionsNo instructions recorded. Reason for Referral None Reported. Results Created Date Observation Date Name Description Value Unit Range Abnormal Flag Note LastModifiedBy Organization Detail LastModifiedTime 07/11/1907/10/2020 non-s tress test No observ ation record ed. [facility] [address], [place], [address], 07/11/2020 13:17:01 07/24/19 21 07/24/2020 US, obste tric, follo w-up No observ ation record ed. [email or web address] [facility] [address], [place], [address], 07/24/2020 12:19:57 07/24/19 21 07/23/2020 US, obste tric, follo w-up No observ ation record ed. [email or web address] [address], [place], [address], 07/24/2020 17:40:06 Result Notes None recorded. Problems Name Problem SNOMED Code Status Onset Date Resolution Date Notes Provider Name and Address Organization Details Recorded Time Past pregnanc y history of section 331380982 Completed 201904/30/2020 R CS with salpinge ctomy Yuridia Thorpe null, [facility] 1 14:08:48 Counseli ng for steriliz ation Completed 201904/30/2020 Yuridia Thorpe null, [facility] 1 14:08:43 Maternal obesity complica ting pregnanc y, childbir th and the puerperi um, antepart um 19098690338 7 Completed 201904/30/2020 Yuridia Thorpe null, [facility] 1 14:08:51 Pregnanc y 92619250 Completed 201908/22/2020 Sara walker null, [facility] 1 16:00:56 Group B Streptoc occus carrier [id number] 03 Completed 201904/30/2020 bacteriu du Yuridia Thorpe null, [facility] 1 14:08:44 Past pregnanc y history of section 101096507 Completed 2019 R CS WITHOUT tubal - 08/16 w/ AD Sara Cordero hl null, [facility] 1 16:00:50 Group B Streptoc occus carrier [id number] 03 Completed 2019 bacteriu du Sara Gil [facility], [facility] 1 16:00:50 Problem Notes None recorded. Procedures Surgical History Date Name Laterality Status Provider Name and Address Organization Details Recorded Time 1 SECTION (SURG) completed [facility] 08/19/2020 11:44:07 1 SECTION (SURG) completed [facility] 08/19/2020 11:44:20 0 Date of Last Pap Smear completed Devi Hamm MD [address], [place], [address], [facility] 01/24/2020 14:57:10 7 delivery completed Devi Hamm MD [address], [place], [address], [facility] 01/24/2020 14:59:00 Imaging Results Imaging Date Name Status LastModified by Organiz ation Details LastModified Time 07/10/2020 non-stress test completed [email or web address] [place] [address] [address], [place], [address], 07/11/2020 13:17:01 07/24/2020 US, obstetric, follow-up completed [facility] [address], [place], [address], 07/24/2020 12:19:57 07/23/2020 US, obstetric, follow-up completed [email or web address] [address], [place], [address], 07/24/2020 17:40:06 Procedure Notes None recorded. Medical Equipment None Reported. Allergies Allergen ID Allergen Name Allergen Category Reaction Reaction Severity Criticality Documentation Date Start Date Code Code System Note Provider Name and Address Organization Details Recorded Time 2764 Product containin g penicilli n (product) medicatio n Not available Not available Not available 01/23/2020 19594 8001 SNOMED Lisa Hyman [facility] 0 12:08:59 2765 morphine medicatio n Not available Not available Not available 01/23/[address] [facility] 0 12:09:06 Medications Name Sig Start Date Stop Date Status Note LastModified by Organization Details LastModified Time azithromycin 250 mg tablet TAKE 1 TABLET BY MOUTH DAILY FOR 5 DAYS 03/04 completed Not Available Not Available Not Available hydrocodone 5 mg-acetamino phen 325 mg tablet TAKE 1 TABLET BY MOUTH EVERY 3 HOURS NEEDED 09/20 completed Not Available Not Available Not Available dexamethason e sodium phosphate 0.1 % eye drops INSTILL 5 DROPS IN THE LEFT EAR THREE TIMES DAILY FOR 7 DAYS 05/01 completed Not Available Not Available Not Available ciprofloxaci n 0.3 % eye drops APPLY 4 DROPS IN THE LEFT EAR THREE TIMES DAILY FOR 7 DAYS 04/01 completed Not Available Not Available Not Available Poly-Iron 150 mg iron capsule TAKE ONE CAPSULE BY MOUTH TWICE DAILY WITH MEALS 08/23 completed Not Available Not Available Not Available Ciprodex 0.3 %-0.1 % ear drops,suspen eleonora 02/05 completed Not Available Not Available Not Available ibuprofen 09/20 completed Not Available Not Available Not Available active Not Available Not Avai lable Not Available Vitals Date Recorded Body height Body mass index (BMI) Body weight Systolic blood pressure Diastolic blood pressure Provider Name and Address Organization Details Last Updated DateTime 08/07/2020 165.1 cm 42.6 kg/m2 638473.6 4672 g 132 mm[Hg] 84 mm[Hg] Lisa Hyman [facility] 1 16:14:49 Date Recorded Body height Body mass index (BMI) Body weight Systolic blood pressure Diastolic blood pressure Provider Name and Address Organization Details Last Updated DateTime 08/14/2020 165.1 cm 42.6 kg/m2 405547.6 4672 g 136 mm[Hg] 83 mm[Hg] [facility] 15:17:51 Date Recorded Body height Body mass index (BMI) Body weight Systolic blood pressure Diastolic blood pressure Provider Name and Address Organization Details Last Updated DateTime 08/23/2020 165.1 cm 18.5 kg/m2 94300.75 g 111 mm[Hg] 56 mm[Hg] [facility] 14:35:00 Date Recorded Body height Body mass index (BMI) Body weight Systolic blood pressure Diastolic blood pressure Provider Name and Address Organization Details Last Updated DateTime 09/20/2020 165.1 cm 38.9 kg/m2 571278.6 1 g 133 mm[Hg] 81 mm[Hg] [facility] 11:35:49 Social History Question Answer Notes LastModified by Organizat ion Details LastModified Time Tobacco Smoking Status Never Smoker Sara Dunn [facility], [facility] 07/10/2020 10:01:40 Do You Have An Advance Directive? No [email or web address] Information not available 05/29/2020 What Is Your Level Of Alcohol Consumption? None Information not available 04/01/2020 Are You Blind Or Do You Have Difficulty Seeing? No [email or web address] Information not available 05/29/2020 What Is Your Level Of Caffeine Consumption? Occasional Information not available 07/10/2020 How Much Tobacco Do You Chew? None Information not available 05/29/2020 In The 14 Days Before Symptom Onset, Have You Had Close Contact With A Laboratory-confir med COVID-19 While That Case Was Ill? No [email or web address] Information not available 05/29/2020 In The 14 Days Before Symptom Onset, Have You Had Close Contact With A Person Who Is Under Investigation For COVID-19 While That Person Was Ill? No [email or web address] Information not available 05/29/2020 Have You Been To An Area Known To Be High Risk For COVID-19? No [email or web address] Information not available 05/29/2020 Are You Deaf Or Do You Have Serious Difficulty Hearing? No [email or web address] Information not available 05/29/2020 What Type Of Diet Are You Following? REGULAR [email or web address] Information not available 05/29/2020 What Is The Highest Grade Or Level Of School You Have Completed Or The Highest Degree You Have Received? 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 No Information not available 05/29/2020 Do You Use Protection During Sex? No [email or web address] Information not available 05/29/2020 Do You Use Your Seat Belt Or Car Seat Routinely? Yes [email or web address] Information not available 05/29/2020 Do You Have Smoke And Carbon Monoxide Detectors In Your Home? Yes [email or web address] Information not available 05/29/2020 How Much Tobacco Do You Smoke? No [email or web address] Information not available 05/29/2020 Do You Feel Stressed (tense, Restless, Nervous, Or Anxious, Or Unable To Sleep At Night)? [id number] [email or web address] Information not available 05/29/2020 Do You Use Any Illicit Or Recreational Drugs? No Information not available 04/01/2020 Do You Use Sunscreen Routinely? No [email or web address] Information not available 05/29/2020 Has Tobacco Cessation Counseling Been Provided? No Information not available 07/10/2020 Have You Used IV Drugs? No [email or web address] Information not available 05/29/2020 Do You Or Have You Ever Used Any Other Forms Of Tobacco Or Nicotine? No Information not available 07/10/2020 Sex: Unknown Functional Status Question Answer Note LastModified by Organization D etails LastModified Time Are you able to walk? YESWOREST [email or web address] Information not available 05/29/2020 What is your exercise level? Moderate [email or web address] Information not available 05/29/2020 Mental Status None recorded. Family History Relationship Description Onset Age of this Age Resolved Age Notes LastModified by Organization Details LastModified Time Mother Diabetes mellitus [email or web address] Not available 2019 12:06:56 Mother Hypertensive disorder [email or web address] Not available 2019 12:07:05 Medical History Condition Response Allergies (Food, seasonal, environmental ) N Other N Blood Transfusion N Drug/Latex Allergies/Reactions N Breast Cancer N Dermatologic Disorders N Lung Disease N Defects or Inherited Disease N Breast Problem N Gestational Diabetes N Hematologic disorders N Anesthesia Complications N History of STI N Deep Vein Thrombosis N Polycystic ovary syndrome N Anxiety Disorder N Autoimmune disease N Arthritis N Infertility N Polyps N Acid Reflux (GERD) N History of abnormal pap N Cancer N Stroke N Varicosities N Neurologic/Epilepsy N Endometriosis N High Cholesterol N Headaches N Fibromyalgia N Kidney Disease N Heart Problems N Kidney or Bladder Problems N Thyroid Problems N GI Problems N Eating Disorder N Anemia N Art (IVF or FET) N Psychiatric Illness N Ovarian Cancer N Diabetes N Pulmonary (TB, Asthma) N Hepatitis/Liver Disease N Eczema N Urinary Tract Infection N Abuse/Domestic Violence N Asthma N Trauma/Violence N Depression/ depression N Heart Disease N Pre-Eclampsia N Hypertension N Osteoporosis N Thrombophilias N Gynecological History Statement/Question Response Date of LMP 11/13/2019 Sexually Active? Y STIs/STDs N HPV Vaccine Y Date of Last Pap Smear 07/07/2019 Sexual Problems? N Current Control Method None LMP Approximate Obstetrics History GPAL:G 2 P 1 1 0 3 Type Value Multiple Births 1 Full Term 1 Premature 1 Living 3 Total 2 Past Encounters Encounter ID Performer Location Encounter Start Date Encounter Closed Date Diagnosis/Indication Diagnosis SNOMED-CT Code Diagnosis ICD10 Code Diagnosis Note [id number] Caroline Davidnishi [facility] [address] [address] 01/23/2020 11:12:12 01/23/2020 18:50:25 [id number] Devi Hamm MD [facility] [address] [address] 01/23/2020 11:13:41 01/24/2020 16:37:22 Past history of section 238059816 Z98.890 Maternal o besity complicating , childbirth and the puerperium, antepartum 2002241217 07 O99.211 Venereal d isease screening 938924181 Z11.3 test positive 554723318 Z32.01 Counseling for elective sterilization done 8138739425 31123 Z30.2 [id number] Janay [facility] [address],[place] [address] 02/06/2020 10:22:11 02/06/2020 11:35:24 Routine care 409507550 Z34.81 screening 2437 98814 Z36.9 [id number] Devi Hamm MD [facility] [address],[place] [address] 03/04/2020 14:26:09 03/04/2020 15:39:37 Routine care 069375003 Z34.81 [id number] [facility] [address],[place] [address] 03/04/2020 14:26:55 03/06/2020 08:52:08 [id number] [facility] [address],[place] [address] 04/01/2020 09:54:35 04/01/2020 11:41:00 screening for malformation 751956797 Z36.3 [id number] Devi Hamm MD [facility] [address],[place] [address] 04/01/2020 09:56:12 04/01/2020 13:48:57 Routine care 397320088 Z34.81 [id number] [facility] [address],[place] [address] 05/01/2020 09:31:52 05/01/2020 10:55:45 Routine care 558448485 Z34.92 [id number] [facility] [address],[place] [address] 05/01/2020 09:31:16 05/01/2020 10:26:45 screening 374712712 Z36.2 [id number] [facility] [address],[place] [address] 05/29/2020 09:25:05 06/02/2020 17:40:40 Routine care 561765507 Z34.92 [id number] [facility] [address],[place] [address] 06/05/2020 14:28:56 06/05/2020 15:52:50 Uterine size for dates discrepancy 754684961 O26.843 Z3A.28 [id number] Devi Hamm MD [facility] [address],[place] [address] 06/12/2020 14:54:13 06/12/2020 16:25:33 Routine care 843457082 Z34.81 [id number] Devi Hamm MD [facility] [address],[place] [address] 06/26/2020 14:23:23 06/26/2020 16:02:46 Routine care 382328867 Z34.81 [id number] Devi Hamm MD [facility] [address],[place] [address] 07/10/2020 09:58:50 07/10/2020 15:43:05 Routine care 437682035 Z34.81 Uterine si ze for dates discrepancy 722981202 O26.849 Maternal o besity complicating , childbirth and the puerperium, antepartum 4991355725 07 O99.211 Reduced fe stephan movement 677808781 O36.8199 [id number] Ck [facility] [address],[place] [address] 07/10/2020 10:47:45 07/10/2020 13:28:41 Reduced movement 548636111 O36.8199 [id number] Bethany Cheatham [facility] [address],[place] [address] 07/23/2020 11:24:50 07/23/2020 12:04:25 Uterine size for dates discrepancy 248865700 O26.843 Z3A.35 [id number] Devi Hamm MD [facility] [address],[place] [address] 07/23/2020 11:25:24 07/23/2020 12:16:28 Routine care 531357306 Z34.81 Past pregn araceli history of section 170792442 Z98.890 [id number] Devi HammMD Jeff welsh [address],[place] [address] 07/31/2020 10:02:11 07/31/2020 10:42:57 Routine care 724501528 Z34.81 [id number] Devi Hamm MD [facility] [address],[place] [address] 08/07/2020 16:06:43 08/07/2020 22:00:22 Routine care 790271926 Z34.81 [id number] Devi Hamm MD [facility] [address],[place] [address] 08/14/2020 15:08:12 08/14/2020 16:51:56 Past history of section 155593508 Z98.890 Routine an tenatal care 154118727 Z34.81 [id number] Devi Hamm MD [facility] [address],[place] [address] 08/19/2020 10:41:16 08/19/2020 10:42:39 [id number] Devi Hamm MD [facility] [address],[place] [address] 08/23/2020 14:29:56 08/23/2020 15:18:26 care 594874869 Z39.2 [id number] Devi Hamm MD [facility] [address],[place] [address] 09/20/2020 11:19:51 09/20/2020 13:38:20 Health Concerns Section Related Observation LastModified by Organization Detai ls LastModified Time None Recorded Concern Status LastModified by Organization Details LastModified Time None Recorded Advance Directives Directive N: Payers Encounter Date Sequence Insurance Name Policy Number Policy Spear Covered Member ID Spear Member ID Guarantor Name 08/07/2020 1 [facility] PRIOR TO 09/05/2020 (MEDICAID REPLACEMENT - HMO) Sade Corona [id number] Sade Corona 08/14/2020 1 [facility] PRIOR TO 09/05/2020 (MEDICAID REPLACEMENT - HMO) Sade Corona [id number] Sade Corona 08/16/2020 1 [facility] PRIOR TO 09/05/2020 (MEDICAID REPLACEMENT - HMO) Sade Chloe [id number] Sade Chloe 08/23/2020 1 [facility] PRIOR TO 09/05/2020 (MEDICAID REPLACEMENT - HMO) Sade Chloe [id number] Sade Chloe 09/20/2020 1 [facility] ON OR AFTER 09/05/20 (MEDICAID REPLACEMENT - HMO) Sade Chloe [id number] Sade Chloe Notes Date Note Type Note Provider Name and Address Organization Details Recorded Time 08/23/2020 text/html Patient is a 19y o presenting for a 1 week visit for repeat CS. She delivered on 08/16 at 39 weeks GA. Baby was girl. breast with small supplementation because not gaining weight yet. Pain minimal, only taking motrin. Doing well overall. Normal lochia. . Bowel and bladder function normal. Mellott score 0 Concerns: none Devi Hamm MD [address], [place], [address], [facility] 08/23/2020 15:17:44 09/20/2020 text/html Patient is a 19yo presenting for a 4 week visit. She had a R CS 08/16 at 39 weeks weeks GA. Baby Roselia doing well Doing well overall. bottlefeeding. Normal lochia. Pain- minimal. Bowel and bladder function normal. Period-no Annual due: now Concerns: none Devi Hamm MD [address], [place], [address], [facility] 09/20/2020 13:10:13 OBGyn Episode Ob Episode Information Episode Created Date Number of Fetuses Patient Bloodtype Patient rh Status Prepregnancy Weight lbs Domestic Partner Domestic Partner Phone Father Name Clinical Systems Analyst Status 01/23/20 20 1 CLOSED Fetus Data First Name Last Name Admitted to NICU Weight (g) Sex Living Outcome Pediatric Complications Fetus ID Race Codes Race Delivery Type 1871.06 7 M [id number] Primary Iona Calculation Initial Iona Date Initial Exam Date Initial Exam Provider Initial Ultrasound Date Last Menstrual Period Date Ultra Sound Weeks Gestation 0 Eighteen To Twenty Week Iona Update Ultra Sound Date Fundal Height At Umbil Quickening Date Ultra Sound Latest Weeks Gestation Final Iona Confirmed By Final Iona Confirmed Date Final Iona Date Ultra Sound Latest Days Gestation 0 0 Menstrual History Last Menstrual Date Menses Monthly On Bcp Conception Prior Menses Frequency Hcg Plus Date Menarche Onset Age Delivery Information Delivery Date Delivery Type Labor Anesthesia Weeks Gestation Incision Type Labor Labor Length Hrs Delivered By Post Complications Tubal Sterilization Discharge Date Comments 7 32 twin Discharge Information Feeding Method Contraceptive Method Maternal HG B and HCT Levels Ob Episode Information Episode Created Date Number of Fetuses Patient Bloodtype Patient rh Status Prepregnancy Weight lbs Domestic Partner Domestic Partner Phone Father Name Clinical Systems Analyst Status 02/06/20 20 1 B Positive 225 CLOSED Fetus Data First Name Last Name Admitted to NICU Weight (g) Sex Living Outcome Pediatric Complications Fetus ID Race Codes Race Delivery Type 3600.38 65 F true Full Term 6380 Repeat Problems Problem Notes EIF, possible small BLACK/apru ption on US 19w. Problem Name Start Date End Date Resolution Snomed Code Not e Past history of section 01/24/2020 519415992 R CS WITHOUT tu bal - 08/16 w/ AD Group B Streptococcus carrier 02/09/2020 [id number] bacteriuria Iona Calculation Initial Iona Date Initial Exam Date Initial Exam Provider Initial Ultrasound Date Last Menstrual Period Date Ultra Sound Weeks Gestation 08/23/2020 02/06/2020 01/23/2020 11/17/2019 9 Eighteen To Twenty Week Iona Update Ultra Sound Date Fundal Height At Umbil Quickening Date Ultra Sound Latest Weeks Gestation Final Iona Confirmed By Final Iona Confirmed Date Final Iona Date Ultra Sound Latest Days Gestation 0 [email or web address] 02/06/2020 08/24/19 21 0 Pre- Flowsheet Flowsheet Date 01/23/2020 Hkan Score Blood Edema Fundus Height Fundus Units Glucose Ketones Leukocytes Nitrite Labor Signs Protein Cervic Dilation Cervic Effacement Cervic Station Type Weight in lbs Pre/Post Dialysis Refused BP Diastolic BP Location Tested BP Systolic BP Type Fetus Heart Rate Present Fetus Movement Comments First trimester at 10w1d with IONA 08/19/20 by LMP reasonably consistent with US today.Ob education done and all questions answered.OB labs next visitGC CT trich doneEncouraged vitamins. Prescription sent if needed.Discussed screening for aneuploidy- pt declinesDiscussed tubal sterilization and RBA including regret. Pt is certain she desires this. Will discuss again in third trimester.encouraged flu shotdiscussed risks of obesity in pregnancyFollow up in 4 weeks for first ob appointmenthistory of sectionmaternal obesity complicating , childbirth and the puerperium, antepartumvenereal disease screeningpregnancy test positivecounseling for elective sterilization done Flowsheet Date 02/06/2020 Khan Score Blood Edema Fundus Height Fundus Units Glucose Ketones Leukocytes Nitrite Labor Signs Protein Cervic Dilation Cervic Effacement Cervic Station neg none trace Type Weight in lbs Pre/Post Dialysis Refused Weight 226.773524205484 BP Diastolic BP Location Tested BP Systolic BP Type 81 119 Fetus Heart Rate Present A 170 Present Fetus Movement A No Comments Doing well. Occasional mild nausea. Declines genetic screening. Will do flu shot this week. labs today. Flowsheet Date 03/04/2020 Khan Score Blood Edema Fundus Height Fundus Units Glucose Ketones Leukocytes Nitrite Labor Signs Protein Cervic Dilation Cervic Effacement Cervic Station Type Weight in lbs Pre/Post Dialysis Refused BP Diastolic BP Location Tested BP Systolic BP Type Fetus Heart Rate Present Fetus Movement Comments Flowsheet Date 03/04/2020 Khan Score Blood Edema Fundus Height Fundus Units Glucose Ketones Leukocytes Nitrite Labor Signs Protein Cervic Dilation Cervic Effacement Cervic Station neg none trace Type Weight in lbs Pre/Post Dialysis Refused Weight 228.830036524589 BP Diastolic BP Location Tested BP Systolic BP Type 83 141 78 140 Fetus Heart Rate Present Fetus Movement A Yes Comments Doing well. N/V improved. Wi ll get flu shot. Just finished zpak for ear infection, but still draining pus, will return to . GBS bacteriuria, discussed. Did gender today, reveal soon. Anatomy US next. Still wants R CS with salpingectomy. Will schedule after anatomy US. Elevated BP today, but very excited about finding out gender. Will watch next visit. Flowsheet Date 04/01/2020 Khan Score Blood Edema Fundus Height Fundus Units Glucose Ketones Leukocytes Nitrite Labor Signs Protein Cervic Dilation Cervic Effacement Cervic Station Type Weight in lbs Pre/Post Dialysis Refused BP Diastolic BP Location Tested BP Systolic BP Type Fetus Heart Rate Present Fetus Movement Comments Flowsheet Date 04/01/2020 Khan Score Blood Edema Fundus Height Fundus Units Glucose Ketones Leukocytes Nitrite Labor Signs Protein Cervic Dilation Cervic Effacement Cervic Station neg none trace Type Weight in lbs Pre/Post Dialysis Refused Weight 231.439004057399 BP Diastolic BP Location Tested BP Systolic BP Type 78 121 Fetus Heart Rate Present A 155 Fetus Movement A Yes Comments Doing well. No concerns. BP normal today. US today anatomy- heart suboptimal. EIF seen- discussed. Possible [id number] abruption/vs BLACK. Precautions given. Will reeval with US in 4 weeks to complete anatomy. Will schedule R CS with B salpingectomy. Flowsheet Date 05/01/2020 Khan Score Blood Edema Fundus Height Fundus Units Glucose Ketones Leukocytes Nitrite Labor Signs Protein Cervic Dilation Cervic Effacement Cervic Station Type Weight in lbs Pre/Post Dialysis Refused BP Diastolic BP Location Tested BP Systolic BP Type Fetus Heart Rate Present Fetus Movement Comments Flowsheet Date 05/01/2020 Khan Score Blood Edema Fundus Height Fundus Units Glucose Ketones Leukocytes Nitrite Labor Signs Protein Cervic Dilation Cervic Effacement Cervic Station none trace Type Weight in lbs Pre/Post Dialysis Refused Weight 237.862791923763 BP Diastolic BP Location Tested BP Systolic BP Type 78 123 Fetus Heart Rate Present Fetus Movement A Yes Comments Doing well. Encouraged flu s hot. Planning repeat c/s and considering tubal. Pt wants to speak with Dr Hamm. Will await u/s recommendations. Flowsheet Date 05/29/2020 Khan Score Blood Edema Fundus Height Fundus Units Glucose Ketones Leukocytes Nitrite Labor Signs Protein Cervic Dilation Cervic Effacement Cervic Station none 31 trace Type Weight in lbs Pre/Post Dialysis Refused Weight 243.534931185219 BP Diastolic BP Location Tested BP Systolic BP Type 87 125 Fetus Heart Rate Present A 145 Fetus Movement A Yes Comments Doing well. Lower back disco mfort. Discussed relief measures. PTL precautions discussed. Pt has decided not to have tubal. Fundal height greater than dates. U/S to be scheduled. Flowsheet Date 06/05/2020 Khan Score Blood Edema Fundus Height Fundus Units Glucose Ketones Leukocytes Nitrite Labor Signs Protein Cervic Dilation Cervic Effacement Cervic Station Type Weight in lbs Pre/Post Dialysis Refused BP Diastolic BP Location Tested BP Systolic BP Type Fetus Heart Rate Present Fetus Movement Comments Flowsheet Date 06/12/2020 Khan Score Blood Edema Fundus Height Fundus Units Glucose Ketones Leukocytes Nitrite Labor Signs Protein Cervic Dilation Cervic Effacement Cervic Station neg none 33 trace Type Weight in lbs Pre/Post Dialysis Refused Weight 242.735296730021 BP Diastolic BP Location Tested BP Systolic BP Type 82 127 Fetus Heart Rate Present A 150 Fetus Movement A Yes Comments Doing very well. GCT wnl. Gr owth last week 58%. DOES NOT WANT TUBAL. R CS scheduled 08/16. Discussed Tdap, will do. ANswered questions re COVID vaccine, pt plans to get. Will get breast pump. Flowsheet Date 06/26/2020 Khan Score Blood Edema Fundus Height Fundus Units Glucose Ketones Leukocytes Nitrite Labor Signs Protein Cervic Dilation Cervic Effacement Cervic Station neg none 36 trace Type Weight in lbs Pre/Post Dialysis Refused Weight 243.438385127557 BP Diastolic BP Location Tested BP Systolic BP Type 73 125 Fetus Heart Rate Present A 135 Fetus Movement A Yes Comments Doing great. Tdap done. Prep reg BMI 38 Flowsheet Date 07/10/2020 Khan Score Blood Edema Fundus Height Fundus Units Glucose Ketones Leukocytes Nitrite Labor Signs Protein Cervic Dilation Cervic Effacement Cervic Station trace none 37 trace Type Weight in lbs Pre/Post Dialysis Refused Weight 247.359408230371 BP Diastolic BP Location Tested BP Systolic BP Type 77 111 Fetus Heart Rate Present A 135 Fetus Movement A Decreased Comments Doing well. Some contraction s. States decreased FM last few weeks and none today. NST reactive and now feeling movement. Discussed kick counts, precautions given. US next visit for S>D. Did get first COVID shot. Flowsheet Date 07/10/2020 Khan Score Blood Edema Fundus Height Fundus Units Glucose Ketones Leukocytes Nitrite Labor Signs Protein Cervic Dilation Cervic Effacement Cervic Station Type Weight in lbs Pre/Post Dialysis Refused BP Diastolic BP Location Tested BP Systolic BP Type Fetus Heart Rate Present Fetus Movement Comments Flowsheet Date 07/23/2020 Khan Score Blood Edema Fundus Height Fundus Units Glucose Ketones Leukocytes Nitrite Labor Signs Protein Cervic Dilation Cervic Effacement Cervic Station Type Weight in lbs Pre/Post Dialysis Refused BP Diastolic BP Location Tested BP Systolic BP Type Fetus Heart Rate Present Fetus Movement Comments Flowsheet Date 07/23/2020 Khan Score Blood Edema Fundus Height Fundus Units Glucose Ketones Leukocytes Nitrite Labor Signs Protein Cervic Dilation Cervic Effacement Cervic Station neg none trace Type Weight in lbs Pre/Post Dialysis Refused Weight 251.91972824915 BP Diastolic BP Location Tested BP Systolic BP Type 74 107 Fetus Heart Rate Present A 155 Fetus Movement A Yes Comments Doing well. Good FM. GBS pos - no need to do next week due to bacteriuria. Preop next week. US today EFW 6-4 (63%). Precautions given. Flowsheet Date 07/31/2020 Khan Score Blood Edema Fundus Height Fundus Units Glucose Ketones Leukocytes Nitrite Labor Signs Protein Cervic Dilation Cervic Effacement Cervic Station neg none 38 trace 1cm 20% -3 Type Weight in lbs Pre/Post Dialysis Refused Weight 252.759053854387 BP Diastolic BP Location Tested BP Systolic BP Type 81 119 Fetus Heart Rate Present A 145 Fetus Movement A Yes Comments Doing well except anxiety ge tting worse. Last it was bad after delivery. Denies SI/HI, does not want to start anythiing now, but wants medication after delivery. Planning to breastfeed, will start zoloft . GBS pos. Flowsheet Date 08/07/2020 Khan Score Blood Edema Fundus Height Fundus Units Glucose Ketones Leukocytes Nitrite Labor Signs Protein Cervic Dilation Cervic Effacement Cervic Station trace 39 Type Weight in lbs Pre/Post Dialysis Refused Weight 256.670287344535 BP Diastolic BP Location Tested BP Systolic BP Type 84 132 Fetus Heart Rate Present A 150 Fetus Movement A Yes Comments pt left without leaving urin e sample slmCS next week, discussed, consented. Anxiety stable. Zoloft to start pp. Precautions given. Flowsheet Date 08/14/2020 Khan Score Blood Edema Fundus Height Fundus Units Glucose Ketones Leukocytes Nitrite Labor Signs Protein Cervic Dilation Cervic Effacement Cervic Station neg trace 40 trace Type Weight in lbs Pre/Post Dialysis Refused Weight 256.940864170269 BP Diastolic BP Location Tested BP Systolic BP Type 83 136 Fetus Heart Rate Present A 140 Fetus Movement A Yes Comments Doing well. Great FM from Gr [facility]. SOme pressure, some constipation, discussed OTCs. CS in 2 days. Discussed, questions answered, consented. Flowsheet Date 08/16/2020 Khan Score Blood Edema Fundus Height Fundus Units Glucose Ketones Leukocytes Nitrite Labor Signs Protein Cervic Dilation Cervic Effacement Cervic Station Type Weight in lbs Pre/Post Dialysis Refused BP Diastolic BP Location Tested BP Systolic BP Type Fetus Heart Rate Present Fetus Movement Comments Menstrual History Last Menstrual Date Menses Monthly On Bcp Conception Prior Menses Frequency Hcg Plus Date Menarche Onset Age 0911/17/2019 Genetic Screening And Infection History Question Response Note Mental Retardation/Autism false Patient's Age Will Be 35 Yea rs Or Older At Estimated Date of Delivery false Thalassemia (Fijian, Beninese, Mediterranean, Or Background): MCV < 80 false Neural Tube Defect (Meningom yelocele, Spina Bifida, Or Anencephaly) false Congenital Heart Defect false Down Syndrome false Narinder-Sachs (eg, Church, Cajun , Kyrgyz-[place]) false Jorge Luis Disease false Sickle Cell Disease Or Trait () false Hemophilia Or Other Blood Disorders false Muscular Dystrophy false Cystic Fibrosis false Yesy's Chorea false Intellectual Disability/Autism false If Yes, Was Person Tested For Fragile X? false Other Inherited Genetic Or C hromosomal Disorder false Maternal Metabolic Disorder (eg, Type 1 Diabetes, PKU) false Patient Or Baby's Father Had A Child With Defects Not Listed Above false Recurrent Loss, Or A Stillbirth false Medications (including Suppl ements, Vitamins, Herbs, OTC Drugs), Illicit/Recreational Drugs, Alcohol true alcohol prior to f inding out- none now If Yes, Agent(s) And Strength/Dosage false Any Other Genetic History false Live With Someone With TB Or Exposed To TB false Patient Or Partner Has Histo ry Of Genital Herpes false Rash Or Viral Illness Since Last Menstrual Period false History Of STD, Gonorrhea, C hlamydia, HPV, Syphilis false Other Infection History false History of HIV false History of Hepatitis false Prior GBS-infected child false Hemoglobinopathy Or Carrier false Other Structural Defect false Recent Travel History Outside of Country false Delivery Information Delivery Date Delivery Type Labor Anesthesia Weeks Gestation Incision Type Labor Labor Length Hrs Delivered By Post Complications Tubal Sterilization Discharge Date Comments 1 None Regional-Sp inal 39 Low Transvers e false Devi Hamm MD Previous X1 & Gbs+ Discharge Information Feeding Method Contraceptive Method Maternal HG B and HCT Levels Ob Episode Information Episode Created Date Number of Fetuses Patient Bloodtype Patient rh Status Prepregnancy Weight lbs Domestic Partner Domestic Partner Phone Father Name Clinical Systems Analyst Status 01/23/20 20 1 CLOSED Fetus Data First Name Last Name Admitted to NICU Weight (g) Sex Living Outcome Pediatric Complications Fetus ID Race Codes Race Delivery Type 1729.09 [id number] Primary Iona Calculation Initial Iona Date Initial Exam Date Initial Exam Provider Initial Ultrasound Date Last Menstrual Period Date Ultra Sound Weeks Gestation 0 Eighteen To Twenty Week Iona Update Ultra Sound Date Fundal Height At Umbil Quickening Date Ultra Sound Latest Weeks Gestation Final Iona Confirmed By Final Iona Confirmed Date Final Iona Date Ultra Sound Latest Days Gestation 0 0 Menstrual History Last Menstrual Date Menses Monthly On Bcp Conception Prior Menses Frequency Hcg Plus Date Menarche Onset Age Delivery Information Delivery Date Delivery Type Labor Anesthesia Weeks Gestation Incision Type Labor Labor Length Hrs Delivered By Post Complications Tubal Sterilization Discharge Date Comments 7 32 twin Discharge Information Feeding Method Contraceptive Method Maternal HG B and HCT Levels
--- OUTSIDE RECORDS SUMMARY | 2024-05-01 19:03 | XMS_ITS | Referral Summary ---
Author Organization [facility] [address] [facility] lt Address [address] [place] [address] Care Team Providers Care Email Marketing Manager Name Role Phone Jamila Luo NP Primary Care Provider [phone] Allergies Active Allergy Reactions Criticality Noted Date [...] (Menactra) 01/04/2015,2013 Tdap 06/19/2020, 7,10/17/2013,11/21 Varicella 10/17/2013,11/21/2012,10/31/2002 Social History Tobacco Use Types Packs/Day Years [...] on file Sexual Orientation Not on file Last Filed Vital Signs Vital Sign Reading [...] 11/09/2023 9:44 AM CDT Plan of Treatment Not on file Procedures Procedure Name Priority Date/Time Associated Diagnosis [...] last revised on 2019. Testing performed by: [facility], [address] [place] [address]., [id number] Blood 11/09/2023 10:3 6 AM CDT 11/09/2023 12:49 PM CDT us Jamila Luo NP LAB MICROBIOLOGY - GENERAL ORDER BILLY Final Result [facility] Department [place] [address] from Last 3 Months or Most Recently Relevant to Health Maintenance Insurance [address] [address] IDPA Care Teams Email Marketing Manager Relationship Specialty Start Date End Date Jamila Luo NP [address] [place] [address] PCP - General Family Medicine 11/09/23
--- OUTSIDE RECORDS SUMMARY | 2024-05-01 19:04 | XMS_ITS | Continuity of Care Document ---
Author Organization [facility] Address [address] [place] [address] Phone Care Team Providers Care Customer Care Specialist Name Role Phone Unavailable Unavailable Unavailable Advance Directives Directive Yes / No Effective Date File Name No Information Encounters Encounter Description Practice Location Reason(s) For Visit Diagnoses Date Provider Providers Copied on Encounter [facility], [address] [place], [place], [place], [id number], tel:[phone] [facility] No Information No Information Referring Provider: ODILIA Pollack, [address], [place], [address]. tel:[phone] Family History Family Member Type Diagnosis Age At Onset No Information Payers Payer name Insurance type Covered constitution party ID Authorjack portillo(s) [facility] [id number] Social History Type Description Quantity Date Captured Comments Sex Female Smoking Status No Information Chief Complaint And Reason For Visit No Information History Of Present Illness Encounter Date Complaint History Of Prese nt Illness No Information Instructions Date Instruction Additional Infor mation No Information Assessments Type Assessment Date No Information
== END 2024-05-01 18:53 | disposition home or self-care (01) ==
PROVIDERS: Emergency Provider Nurse Practitioner; PCP Nurse Practitioner
DX: H66.91 Otitis media, unspecified, right ear (principal)
CPT/HCPCS: 99213; G0463